=== PATIENT | female | born 1980 | race American Indian/Alaskan Native ===

== ENCOUNTER 2016-08-17 06:01 | Emergency (ER) | payer MEDICAID ==
[2016-08-17 06:21] VITALS: BP 136/101
== END 2016-08-17 06:38 | disposition left against medical advice (07) ==
LOC: ED 06:01
DX: S01.511A Laceration without foreign body of lip, initial encounter (principal); F17.200 Nicotine dependence, unspecified, uncomplicated; W22.8XXA Striking against or struck by other objects, initial encounter; Y93.89 Activity, other specified; Y99.9 Unspecified external cause status; Y92.89 Other specified places as the place of occurrence of the external cause; Z53.21 Procedure and treatment not carried out due to patient leaving prior to being seen by health care provider

== ENCOUNTER 2016-08-17 07:09 | Emergency (ER) | payer MEDICAID ==
[2016-08-17 07:27] VITALS: BP 146/106
--- NOTE | 2016-08-17 08:07 | Emergency Department Report ---
ED Laceration HPI - HPI Chief Complaint: Laceration/Recheck/Suture Stated Complaint: LIP LACERATION Occurred When: Today Location: Head (left upper lip) Laceration Symptoms: Yes Pain, No Foreign Body Sensation, No Numbness Other History: 36-year-old female comes in for a laceration to her upper lip. Patient reports that she had been over and hit her mouth. She reports that her left upper tooth went into her lip and cheek. Now she has a opening from the inside of her mouth to a little small outside opening. She reports that mouth kept bleeding until she arrived here in the emergency room. ED Review of Systems ROS: Stated complaint: LIP LACERATION Other details as noted in HPI Constitutional: no symptoms reported ENT: other (mouth pain) ED Past Medical Hx - Past Medical History Previous Medical History?: No Additional medical history: KIDNEY INFECTION - Surgical History Past Surgical History?: No - Social History Smoking Status: Current Every Day Smoker Substance Use Type: Alcohol - Medications Home Medications: Home Medications Medication Instructions Recorded Confirmed Last Taken Type Nitrofurantoin [place]/M-Cryst 100 mg PO Q12HR #14 capsule 03/04/14 Unknown Rx [Macrobid] Ondansetron [Zofran Odt] 8 mg PO TID PRN #7 tab.rapdis 03/04/14 Unknown Rx oxyCODONE /ACETAMINOPHEN [Percocet 1 tab PO Q6HR PRN #10 tablet 03/04/14 Unknown Rx 5/325 mg] Acetaminophen/Codeine [Tylenol #3] 1 tab PO Q6H PRN #14 tab 12/24/14 Unknown Rx Cyclobenzaprine [Flexeril 10mg] 10 mg PO TID PRN #20 tablet 12/24/14 Unknown Rx Ibuprofen [Motrin 800 MG tab] 800 mg PO Q8H PRN #30 tablet 12/24/14 Unknown Rx Ibuprofen [Motrin 800 MG tab] 800 mg PO Q8HR PRN #20 tablet 05/29/16 Unknown Rx Laceration Physical Exam - Exam General: Vital signs noted. No distress. Alert and acting appropriately. Wound Length (cm): 1 Laceration Location: Other (left upper lip) ED Course Vital Signs 08/17/16 07:20 Temperature 98.4 F Pulse Rate 103 H Respiratory 18 Rate Blood Pressure 146/106 O2 Sat by Pulse 100 Oximetry - Laceration /Wound Repair Left Cheek Wound Length (cm): 1 Wound's Depth, Shape: superficial Wound Explored: no foreign body removed Irrigated w/ Saline (ccs): 5 Betadine Prep?: Yes Wound Repaired With: Dermabond Sterile Dressing Applied?: No Progress: Patient tolerated procedure well. ED Medical Decision Making - Medical Decision Making Patient has been evaluated by this provider. Discussed with patient that we used Dermabond to close the outer cheek. Discussed with patient that the inner cheek heals very fast and that it would be best to have it heal on its own. Recommend patient to do warm salt rinses at least 3 times a day. She can take Tylenol or ibuprofen for pain management. Patient verbalized understanding. Critical care attestation.: If time is entered above; I have spent that time in minutes in the direct care of this critically ill patient, excluding procedure time. ED Disposition Clinical Impression: Laceration of cheek Qualifiers: Encounter type: initial encounter Laterality: left Qualified Code(s): S01.412A - Laceration without foreign body of left cheek and temporomandibular area, initial encounter Disposition: DISCHARGED TO HOME OR SELFCARE Is pt being admited?: No Does the pt Need Aspirin: No Condition: Stable Instructions: Laceration (ED) Additional Instructions: Rinse mouth out with warm salt water at least 3 times a day. Tylenol or ibuprofen for pain management. Do not pick or scribe the outer left cheek with the Dermabond has been placed. Following closure primary care provider. Referrals: TIM LANDEROS MD [Primary Care Provider] - 3-5 Days JEANNA MCKEON MD [Staff Physician] - 3-5 Days Forms: Work/School Release Form(ED)
== END 2016-08-17 09:11 | disposition home or self-care (01) ==
LOC: ED 07:09
DX: S01.412A Laceration without foreign body of left cheek and temporomandibular area, initial encounter (principal); F17.200 Nicotine dependence, unspecified, uncomplicated; W22.8XXA Striking against or struck by other objects, initial encounter; Y93.89 Activity, other specified; Y99.9 Unspecified external cause status; Y92.89 Other specified places as the place of occurrence of the external cause

== ENCOUNTER 2016-10-15 23:58 | Emergency (ER) | payer MEDICAID ==
[2016-10-16] MEDS ORDERED: NACL 0.9% 1000 ML 1,000 ML IV ONE (00:20)
[2016-10-16 00:54] LABS: Basophils % (Auto) 0.6 % (0.0-1.8); Eosinophils % (Auto) 0.6 % (0.0-4.3); Hematocrit 40.2 % (30.3-42.9); Hemoglobin 12.7 gm/dl (10.1-14.3); Mean Corpuscular HGB Conc 32 % (30-34); Mean Corpuscular Volume 82 fl (79-97); Platelet Count 297 K/mm3 (140-440); Red Blood Count 4.93 M/mm3 (3.65-5.03); Red Cell Distribution Width 14.4 % (13.2-15.2); White Blood Count 17.1 K/mm3 (4.5-11.0)
[2016-10-16 01:04] LABS: INR 1.01 (0.87-1.13)
[2016-10-16 01:05] LABS: Partial Thromboplastin Time 23.8 Sec. (24.2-36.6)
[2016-10-16 01:07] LABS: Mean Corpuscular Hemoglobin 26 pg (28-32)
[2016-10-16 01:09] LABS: Urine Drugs of Abuse Note Disclamer
[2016-10-16 01:10] LABS: Alanine Aminotransferase 28 units/L (7-56); Albumin 4.5 g/dL (3.9-5); Albumin/Globulin Ratio 1.4 %; Alkaline Phosphatase 87 units/L (35-129); Anion Gap 21 mmol/L; BUN/Creatinine Ratio 16.25; Bilirubin,Total 0.2 mg/dL (0.1-1.2); Blood Urea Nitrogen 13 mg/dL (7-17); Calcium 8.7 mg/dL (8.4-10.2); Carbon Dioxide 22 mmol/L (22-30); Chloride 102.3 mmol/L (98-107); Creatine Kinase 579 units/L (30-135); Glucose 120 mg/dL (65-100); Potassium 3.7 mmol/L (3.6-5.0); Sodium 142 mmol/L (137-145); Total Protein 7.7 g/dL (6.3-8.2)
--- NOTE | 2016-10-16 01:22 | Emergency Department Report ---
ED Altered Mental Status HPI - General Chief Complaint: Altered Mental Status Stated Complaint: POSS CONSUSSION Time Seen by Provider: 10/16/16 00:14 Source: police Mode of arrival: Ambulatory Limitations: Altered Mental Status, Physical Limitation - History of Present Illness Initial Comments: 36-year-old female presents emergency Department via law enforcement for evaluation of altered mental status. History is obtained from law enforcement due to the patient's altered mental status. Per report, patient was at a local hotel going from door to door and banging on them. Law enforcement was called to investigate. Patient became combative with law enforcement and had to be forcibly restrained. Patient reportedly then became unconscious. Further history is unable to be obtained from the patient. MD Complaint: altered mental status -: Sudden, This evening Severity: moderate Consistency of Symptoms: constant Context: trauma ED Review of Systems ROS: Stated complaint: POSS CONSUSSION Other details as noted in HPI Comment: Unobtainable due to pts medical conditions ED Past Medical Hx - Past Medical History Additional medical history: Unknown - Surgical History Additional Surgical History: Unknown - Social History Smoking Status: Unknown if ever smoked ED Physical Exam - General Limitations: Altered Mental Status, Physical Limitation General appearance: in no apparent distress, lethargic - Head Head exam: Present: normocephalic, other (contusion noted to the occipital scalp ) - Eye Eye exam: Present: normal appearance, PERRL, EOMI - ENT ENT exam: Present: normal exam, normal orophraynx, mucous membranes moist - Neck Neck exam: Present: normal inspection, full ROM. Absent: tenderness - Respiratory Respiratory exam: Present: normal lung sounds bilaterally. Absent: respiratory distress - Cardiovascular Cardiovascular Exam: Present: regular rate, normal rhythm, normal heart sounds - GI/Abdominal GI/Abdominal exam: Present: soft, normal bowel sounds. Absent: distended, tenderness - Extremities Exam Extremities exam: Present: normal inspection, full ROM. Absent: tenderness - Back Exam Back exam: Present: normal inspection, full ROM. Absent: tenderness - Neurological Exam Neurological exam: Present: altered, other (GCS 11 (E3, V3, M5)). Absent: motor sensory deficit - Skin Skin exam: Present: warm, dry, intact ED Course Vital Signs 10/16/16 00:28 Pulse Rate 104 H Respiratory 18 Rate Blood Pressure 133/95 [Left] O2 Sat by Pulse 100 Oximetry - Lab Data Result diagrams: 10/16/16 00:29 10/16/16 00:29 Lab Results 10/16/16 10/16/16 10/16/16 Range/Units 00:29 00:29 00:29 WBC 17.1 H (4.5-11.0) K/mm3 RBC 4.93 (3.65-5.03) M/mm3 Hgb 12.7 (10.1-14.3) gm/dl Hct 40.2 (30.3-42.9) % MCV 82 (79-97) fl MCH 26 L (28-32) pg MCHC 32 (30-34) % RDW 14.4 (13.2-15.2) % Plt Count 297 (140-440) K/mm3 Lymph % (Auto) 10.6 L (13.4-35.0) % Boundary % (Auto) 3.2 (0.0-7.3) % Eos % (Auto) 0.6 (0.0-4.3) % Baso % (Auto) 0.6 (0.0-1.8) % Lymph # 1.8 (1.2-5.4) K/mm3 Boundary # 0.6 (0.0-0.8) K/mm3 Eos # 0.1 (0.0-0.4) K/mm3 Baso # 0.1 (0.0-0.1) K/mm3 Seg Neutrophils % 85.0 H (40.0-70.0) % Seg Neutrophils # 14.5 H (1.8-7.7) K/mm3 PT 13.2 (12.2-14.9) Sec. INR 1.01 (0.87-1.13) APTT 23.8 L (24.2-36.6) Sec. Sodium 142 (137-145) mmol/L Potassium 3.7 (3.6-5.0) mmol/L Chloride 102.3 (98-107) mmol/L Carbon Dioxide 22 (22-30) mmol/L Anion Gap 21 mmol/L BUN 13 (7-17) mg/dL Creatinine 0.8 (0.7-1.2) mg/dL Estimated GFR > 60 ml/min BUN/Creatinine Ratio 16.25 % Glucose 120 H (65-100) mg/dL Lactic Acid (0.7-2.0) mmol/L Calcium 8.7 (8.4-10.2) mg/dL Total Bilirubin 0.2 (0.1-1.2) mg/dL AST 65 H (5-40) units/L ALT 28 (7-56) units/L Alkaline Phosphatase 87 (35-129) units/L Total Creatine Kinase 579 H (30-135) units/L Total Protein 7.7 (6.3-8.2) g/dL Albumin 4.5 (3.9-5) g/dL Albumin/Globulin Ratio 1.4 % Salicylates (2.8-20.0) mg/dL Plasma/Serum Alcohol (0-0.07) gm% 10/16/16 10/16/16 10/16/16 Range/Units 00:29 00:29 00:29 WBC (4.5-11.0) K/mm3 RBC (3.65-5.03) M/mm3 Hgb (10.1-14.3) gm/dl Hct (30.3-42.9) % MCV (79-97) fl MCH (28-32) pg MCHC (30-34) % RDW (13.2-15.2) % Plt Count (140-440) K/mm3 Lymph % (Auto) (13.4-35.0) % Boundary % (Auto) (0.0-7.3) % Eos % (Auto) (0.0-4.3) % Baso % (Auto) (0.0-1.8) % Lymph # (1.2-5.4) K/mm3 Boundary # (0.0-0.8) K/mm3 Eos # (0.0-0.4) K/mm3 Baso # (0.0-0.1) K/mm3 Seg Neutrophils % (40.0-70.0) % Seg Neutrophils # (1.8-7.7) K/mm3 PT (12.2-14.9) Sec. INR (0.87-1.13) APTT (24.2-36.6) Sec. Sodium (137-145) mmol/L Potassium (3.6-5.0) mmol/L Chloride (98-107) mmol/L Carbon Dioxide (22-30) mmol/L Anion Gap mmol/L BUN (7-17) mg/dL Creatinine (0.7-1.2) mg/dL Estimated GFR ml/min BUN/Creatinine Ratio % Glucose (65-100) mg/dL Lactic Acid 3.6 H* (0.7-2.0) mmol/L Calcium (8.4-10.2) mg/dL Total Bilirubin (0.1-1.2) mg/dL AST (5-40) units/L ALT (7-56) units/L Alkaline Phosphatase (35-129) units/L Total Creatine Kinase (30-135) units/L Total Protein (6.3-8.2) g/dL Albumin (3.9-5) g/dL Albumin/Globulin Ratio % Salicylates < 0.3 L (2.8-20.0) mg/dL Plasma/Serum Alcohol 0.23 H (0-0.07) gm% - Radiology Data Radiology results: report reviewed, image reviewed CT of the head shows a small amount of probable subarachnoid blood in the left frontal/temporal lobe. There is no mass effect or midline shift noted. This was discussed with the radiologist. - Medical Decision Making Lab and imaging results have been reviewed. I have spoken with Dr. Hicks, trauma surgery at [facility]. Patient has been accepted in transfer. - Differential Diagnosis alcohol intoxication, closed head injury Critical care attestation.: If time is entered above; I have spent that time in minutes in the direct care of this critically ill patient, excluding procedure time. ED Disposition Clinical Impression: Subarachnoid hemorrhage Alcohol intoxication Qualifiers: Complication of substance-induced condition: uncomplicated Qualified Code(s): F10.120 - Alcohol abuse with intoxication, uncomplicated Disposition: DC/TX SHORT-TERM GEN HOSP INPT Is pt being admited?: No Condition: Stable Referrals: PRIMARY CARE, [Primary Care Provider] - 3-5 Days Time of Disposition: 01:41
[2016-10-16 01:26] LABS: Bilirubin,Urine NEG (Negative); Blood,Urine SM (Negative); Ketones,Urine NEG (Negative); Leukocyte Esterase,Urine NEG (Negative); Mucus,Urine FEW /HPF; Nitrite,Urine NEG (Negative); RBC,Urine < 1.0 /HPF (0.0-6.0); Urobilinogen,Urine < 2.0 mg/dL (<2.0); WBC,Urine < 1.0 /HPF (0.0-6.0)
--- NOTE | 2016-10-16 01:36 | Cat Scan Report ---
FINAL REPORT PROCEDURE: CT HEAD/BRAIN WO CON TECHNIQUE: Computerized tomography of the head was performed without contrast material. HISTORY: Altered Mental Status, trauma COMPARISON: No prior studies are available for comparison. FINDINGS: Skull and scalp: Small area of soft tissue swelling identified along posterior right occipital bone. No skull fracture is seen.. Paranasal sinuses: Normal. Ventricles and subarachnoid spaces: Normal. Cerebrum: There are numerous small areas of subtle hyper attenuation identified in the anterior lateral frontal lobe region is well as the lateral left temporal lobe region. A subtle subarachnoid hemorrhage is suspected. Further evaluation with MRI would be of benefit. The remainder of the cerebral imaging appears normal. The ventricles are normal. No midline displacement or mass effect at this time.. Cerebellum and brainstem: No evidence of hemorrhage, acute infarction or mass. Vasculature: There is a mild increased density of the left middle cerebral artery. Magnetic resonance imaging of this region would be of benefit.. Comments: There is some artifact identified from earrings.. IMPRESSION: Numerous small areas of subtle hyper attenuation identified in the anterior lateral left frontal lobe region as well as the lateral left temporal lobe region most consistent with a subtle subarachnoid hemorrhage. Cerebral contusion is also within the differential. Further evaluation with MRI would be of benefit. There is no evidence of mass effect or midline displacement. The basilar cisterns are maintained. Mild increased density of the left middle cerebral artery on this study, further evaluation with MRI would be of benefit. There is mild soft tissue swelling identified along the posterior right occipital bone. No skull fracture is seen. The above critical findings are discussed with the patient's ER physician at the time of dictation 0028 central standard time on 10/16/2016
[2016-10-16 02:16] VITALS: BP 126/85
--- NOTE | 2016-10-16 02:17 | Cat Scan Report ---
FINAL REPORT PROCEDURE: CT CERVICAL SPINE WO CON TECHNIQUE: Computerized tomography of the cervical spine was performed from the skull base to T1 without contrast material. HISTORY: trauma with [facility] COMPARISON: No prior studies are available for comparison. FINDINGS: The alignment of the vertebral segments is normal. No acute fracture or dislocation. The heights of the vertebral bodies and the disc spaces are maintained. The spinal canal is adequate at all levels. Visualized portion of the airway is patent IMPRESSION: Normal CT of the cervical spine..
== END 2016-10-16 03:30 | disposition short-term general hospital (02) ==
LOC: ED 23:58 → MERGE 23:58 → EDBD 23:58 → ED 10-16 03:30
DX: I60.9 Nontraumatic subarachnoid hemorrhage, unspecified (principal); F10.120 Alcohol abuse with intoxication, uncomplicated
CPT/HCPCS: 36415; 70450; 72125; 80053; 80307; 81001; 81025; 82140; 82550; 85025; 85610; 85730; 96360; 96361; 99285; G0480; J7030; 80320

== ENCOUNTER 2017-06-30 11:49 | Emergency (ER) | payer MEDICAID ==
[2017-06-30 12:00] VITALS: BP 148/126
--- NOTE | 2017-06-30 12:28 | XRay Report ---
RIGHT HAND, 3 views: History: Right hand injury and pain. The bony architecture is intact. Bony alignment is normal. No soft tissue abnormalities are seen. The joint spaces appear preserved. IMPRESSION: Normal right hand.
== END 2017-06-30 15:28 | disposition left against medical advice (07) ==
LOC: ED 11:49
DX: M79.641 Pain in right hand (principal); Z53.21 Procedure and treatment not carried out due to patient leaving prior to being seen by health care provider
CPT/HCPCS: 81025

== ENCOUNTER 2018-02-26 16:53 | Inpatient (IN) | payer MEDICAID ==
[2018-02-26] MEDS ORDERED: LACTATED RINGERS 2,000 ML ONE (18:04)
[2018-02-26] MEDS: LACTATED RINGERS 1,000 ML IV SCH ×3 (18:40→20:04)
[2018-02-26] MEDS ORDERED: BICITRA PO ONE (19:00)
[2018-02-26] MEDS ORDERED: REGLAN IV ONE (19:00)
[2018-02-26] MEDS ORDERED: ANCEF/STERILE WATER 2 GM/20 ML 2 GM/20 ML SYRINGE IV NR (19:00)
[2018-02-26] MEDS ORDERED: BRETHINE SUB-Q ONE (19:00)
[2018-02-26] MEDS ORDERED: PEPCID IV ONE (19:00)
[2018-02-26] MEDS ORDERED: PITOCin/NS 20 UNIT/1000ML DRIP 20 UNITS/1,000 ML BAG IV SCH ×2 (19:00→23:00)
[2018-02-26 19:11] LABS: Basophils # (Auto) 0.1 K/mm3 (0.0-0.1); Basophils % (Auto) 0.4 % (0.0-1.8); Eosinophils # (Auto) 0.3 K/mm3 (0.0-0.4); Eosinophils % (Auto) 2.2 % (0.0-4.3); Hematocrit 34.8 % (30.3-42.9); Hemoglobin 11.3 gm/dl (10.1-14.3); Lymphocytes # (Auto) 2.7 K/mm3 (1.2-5.4); Lymphocytes % (Auto) 18.4 % (13.4-35.0); Mean Corpuscular HGB Conc 33 % (30-34); Mean Corpuscular Hemoglobin 26 pg (28-32); Mean Corpuscular Volume 79 fl (79-97); Monocytes % (Auto) 6.5 % (0.0-7.3); Platelet Count 244 K/mm3 (140-440); Red Blood Count 4.39 M/mm3 (3.65-5.03); Red Cell Distribution Width 13.8 % (13.2-15.2)
[2018-02-26] MEDS ORDERED: DEMEROL IV PRN (21:15)
[2018-02-26] MEDS ORDERED: ZOFRAN IV PRN ×2 (21:15→22:57)
[2018-02-26] MEDS ORDERED: DILAUDID IV PRN (21:15)
--- NOTE | 2018-02-26 21:15 | Anesthesia Consultation ---
Anesthesia Consult and Med Hx Date of service: 02/26/18 - Airway Anesthetic Teeth Evaluation: Good ROM Head & Neck: Adequate Mental/Hyoid Distance: Adequate Mallampati Class: Class I Intubation Access Assessment: Good - Pulmonary Exam CTA: Yes - Cardiac Exam Cardiac Exam: RRR - Pre-Operative Health Status ASA Pre-Surgery Classification: ASA2, Emergency Proposed Anesthetic Plan: Epidural - Pulmonary Hx Asthma: No COPD: No Hx Pneumonia: No - Cardiovascular System Hx Hypertension: Yes - Central Nervous System Hx Seizures: Yes Hx Psychiatric Problems: Yes (DEPRESSION) - Endocrine Hx Renal Disease: No Hx End Stage Renal Disease: No Hx Hypothyroidism: No Hx Hyperthyroidism: No - Hematic Hx Anemia: No Hx Sickle Cell Disease: No - Other Systems Hx Alcohol Use: No
--- NOTE | 2018-02-26 21:15 | Anesthesia Day of Surgery ---
Anesthesia Day of Surgery - Day of Surgery Patient Examined: Yes Patient H&P Reviewed: Yes Patient is NPO: No (pt had a meal at 16:00)
[2018-02-26] MEDS ORDERED: XYLOCAINE MPF 2% ONE (21:48)
[2018-02-26] MEDS ORDERED: SUBLIMAZE ONE (21:51)
[2018-02-26] MEDS ORDERED: NEO SYNEPHRINE/NS Syringe(OR USE) IV ONE (21:58)
[2018-02-26] MEDS ORDERED: LACTATED RINGERS 1,000 ML ONE (21:58)
[2018-02-26] MEDS ORDERED: TORADOL ONE (21:58)
[2018-02-26] MEDS ORDERED: LACTATED RINGERS 1,000 ML IV SCH (22:00)
[2018-02-26] MEDS ORDERED: WATER FOR IRRIG STERILE IR ONE (22:05)
[2018-02-26] MEDS ORDERED: ANCEF IV ONE (22:05)
[2018-02-26] MEDS ORDERED: NACL 0.9% IR ONE (22:05)
--- NOTE | 2018-02-26 22:52 | History and Physical Report ---
History of Present Illness Date of examination: 02/26/18 Date of admission: 02/26/18 19:00 Chief complaint: Ruptured membranes in breech presentation History of present illness: Late Entry: 37-year-old at 37+5 weeks presents with rupture of membranes, she is a [facility] patient. course unremarkable per patient, in triage she is found to be in breech presentation with ruptured membranes Past History Past Medical History: seizure Past Surgical History: no surgical history [employer] History: denies: hepatitis B, hepatitis C, HIV, syphilis, trichomonas Social history: single, full code. denies: smoking - Obstetrical History Expected Date of Delivery: 03/14/18 Actual Gestation: 37 Week(s) 5 Day(s) : 7 Para: 2 Medications and Allergies Allergies Allergy/AdvReac Type Severity Reaction Status Date / Time No Known Allergies Allergy Verified 08/17/16 06:21 Home Medications Medication Instructions Recorded Confirmed Last Taken Type Docusate Sodium [Colace] 100 mg PO BID 02/26/18 02/26/18 02/24/18 21:00 History Ferrous Sulfate [Feosol] 325 mg PO BID 02/26/18 02/26/18 02/24/18 21:00 History 1 Ibuprofen [Motrin 600 MG tab] 600 mg PO Q8H PRN #30 tablet 02/26/18 Unknown Rx Multivitamin with Iron 1 each PO DAILY #30 tablet 02/26/18 Unknown Rx [Multivitamins with Iron] Vit-Fe Fumar-FA [ 1 tab PO QDAY 02/26/18 02/26/18 02/24/18 21: 00 History Vitamin] 1 levETIRAcetam [Keppra] 500 mg PO BID 02/26/18 02/26/18 02/24/18 21:00 History 1 oxyCODONE /ACETAMINOPHEN [Percocet 1 tab PO Q6HR PRN #30 tablet 02/26/18 Unknown Rx 5/325] Active Meds: Active Medications Hydromorphone HCl (Dilaudid) 0.5 mg IV Q10MIN PRN PRN Reason: Pain , Severe (7-10) Cefazolin Sodium (Ancef/Sterile Water 2 Gm/20 Ml) 2 gm in 20 mls @ 80 mls/hr IV PREOP NR; Protocol Stop: 02/26/18 23:59 Lactated Ringer's (Lactated Ringers) 1,000 mls @ 2,250 mls/hr IV PREOP SHY Stop: 02/27/18 19:27 Last Admin: 02/26/18 20:04 Dose: 2,250 mls/hr Oxytocin/Sodium Chloride (Pitocin/Ns 20 Unit/1000ml Drip) 20 units in 1,000 mls @ 0 mls/hr IV TITR SHY Lactated Ringer's (Lactated Ringers) 1,000 mls @ 100 mls/hr IV DIRECT SHY Meperidine HCl (Demerol) 25 mg IV ONCE PRN PRN Reason: Shivering Stop: 02/26/18 23:59 Ondansetron HCl (Zofran) 4 mg IV ONCE PRN PRN Reason: Nausea And Vomiting Review of Systems Constitutional: no fever, no sweats, no chronic headaches Eyes: no blurred vision, no diplopia Cardiovascular: no chest pain, no orthopnea, no syncope, no lightheadedness, no shortness of breath, no dyspnea on exertion Respiratory: no cough, no cough with sputum, no shortness of breath Gastrointestinal: no nausea, no vomiting Genitourinary: leakage of fluid, no vaginal bleeding - Vital Signs Vital signs: Vital Signs Temp Resp 98.6 F 18 02/26/18 18:29 02/26/18 18:29 Temp Pulse Resp BP Pulse Ox 98.6 F 92 H 18 130/88 02/26/18 18:29 02/26/18 18:48 02/26/18 18:29 02/26/18 18:48 - Physical Exam Abdomen: Positive: normal appearance, soft. Negative: distention, tenderness, guarding, rigidity Genitourinary (Female): Negative: normal external genitalia Uterus: Positive: enlarged (EFW ~ 3400) Adnexa: both: normal Extremities: Positive: normal - Obstetrical FHR: category 1 Cervical Dilatation: 2 (Per RN) Results Result Diagrams: 02/26/18 18:50 Abnormal lab results 02/26/18 Range/Units 18:50 WBC 14.7 H (4.5-11.0) K/mm3 MCH 26 L (28-32) pg [facility] # 1.0 H (0.0-0.8) K/mm3 Seg Neutrophils % 72.5 H (40.0-70.0) % Seg Neutrophils # 10.6 H (1.8-7.7) K/mm3 All other labs normal. Assessment and Plan A: 37-year-old at 37+5 weeks ruptured membranes and breech presentation -Category 1 P: -Routine labs -She has been consented -Proceed to the OR for primary - Patient Problems (1) 37 weeks gestation of Current Visit: Yes Status: Acute (2) Breech presentation Current Visit: Yes Status: Acute
[2018-02-26] MEDS ORDERED: PHENERGAN PR PRN (22:57)
[2018-02-26] MEDS ORDERED: ANUCORT-HC PR PRN (22:57)
[2018-02-26] MEDS ORDERED: NARCAN 0.4 MG/1 ML IV PRN (22:57)
[2018-02-26] MEDS ORDERED: MILK OF MAGNESIA PO PRN (22:57)
[2018-02-26] MEDS ORDERED: TYLENOL PO PRN (22:57)
[2018-02-26] MEDS ORDERED: LANSINOH TP PRN (22:57)
[2018-02-26] MEDS ORDERED: SENOKOT PO PRN (22:57)
[2018-02-26] MEDS ORDERED: TUCKS PAD TP PRN (22:57)
[2018-02-26] MEDS ORDERED: MYLICON PO PRN (22:57)
--- NOTE | 2018-02-26 22:57 | Operative Report ---
Operative Report Operative Report: DATE: 02/26/2018 PREOPERATIVE DIAGNOSIS: 37-year-old at 37+5 weeks, breech presentation, active labor POSTOP DIAGNOSIS: As above NAME OF PROCEDURE: Primary low transverse section SURGEON: JAIME STEEN MD MENTAL HEALTH PRACTITIONER: Marleni ANESTHESIA: Combined spinal epidural EBL: 500 mL PATHOLOGY SPECIMEN: None URINE OUTPUT: 100 mL FINDINGS: Male in complete breech presentation, time of is 22:06, weight 6 lbs. 1 oz. or 2751 grams, Apgars 8 and 9, uterus appears unlabored otherwise normal with normal uterus tubes and ovaries bilaterally DESCRIPTION OF PROCEDURE: After informed consent, patient was taken to the operating room where she was prepped and draped in a sterile fashion. Pfannestial incision was performed 2 cm above the pubic symphysis. This was then carried down to the underlying rectus fascia which was scored in the midline. The fascial incision was extended laterally with the use of Frances scissors, anterior leaf was then grasped with Kip's elevated dissected sharply and bluntly off the underlying rectus. In a similar fashion the inferior leaf was grasped elevated dissected sharply and bluntly off the underlying rectus. The rectus was in the midline and the peritoneal cavity was entered without difficulty. After good visualization of the bladder the peritoneal layer was extended up and down; bladder blade was placed in the patient's pelvic cavity, bladder flap could not be created. A hysterotomy incision was then performed with clear amniotic fluid noted. Infant in cephalic presentation was delivered without difficulty in the usual manner; cord was clamped cut and was handed over to waiting NICU staff. The placenta was then delivered intact, the uterus was then exteriorized cleared of all clots and debris. Her hysterotomy incision was then closed in a running locked fashion with 0 Vicryl on a CTX; using the same suture were able to imbricate the initial layer. The uterus was then returned to the patient's pelvic cavity ; the peritoneal edges were grasped with hemostats and Rose Mary's; irrigation was used to clear the gutters of all clots and debris. Tisseel hemostatic agent was applied copiously over the hysterotomy incision. The peritoneal layer was closed in a running fashion with 3-0 Vicryl; the rectus was reapproximated with a single [id number] stitch. The fascia was then closed in a running fashion with 0 Vicryl; the subcutaneous layer was reapproximated with a single [id number] stitch. The skin was then closed in a subcuticular manner with 4-0 Monocryl. She tolerated the procedure well lap and instrument counts were correct 2, she did receive 2 grams of Ancef prior to the procedure. She is transferred to PACU in stable condition.
[2018-02-26] MEDS ORDERED: SODIUM CHLORIDE FLUSH SYRINGE 10 ML IV PRN (23:00)
[2018-02-26] MEDS ORDERED: D5LR 1,000 ML IV SCH (23:00)
[2018-02-27] MEDS: TORADOL IV PRN ×2 (01:16→09:50)
[2018-02-27] MEDS: KEPPRA PO SCH ×3 (01:17→22:33)
[2018-02-27] MEDS: PERCOCET 5/325 PO PRN ×3 (04:43→19:41)
[2018-02-27] MEDS: PRENATAL VITAMIN PO SCH (09:55)
[2018-02-27] MEDS: FEOSOL PO SCH (09:55)
--- NOTE | 2018-02-27 10:03 | Progress Note ---
Assessment and Plan O; Parker still in, BP stable A: POD # 1 -stable P: Continue post -op care Subjective - Subjective Date of service: 02/27/18 Principal diagnosis: - Breech Patient reports: appetite normal : doing well Objective - Vital Signs Latest vital signs: Vital Signs Temp Pulse Resp BP BP Pulse Ox 02/27/18 04:45 97.9 F 89 20 125/78 98 02/27/18 00:52 98.0 F 76 20 133/90 100 02/27/18 00:11 98.5 F 82 12 124/83 100 02/27/18 00:10 16 02/26/18 23:05 98.3 F 76 16 120/75 100 02/26/18 18:48 92 H 130/88 02/26/18 18:29 98.6 F 18 Intake and Output 02/26/18 02/27/18 02/27/18 22:59 06:59 14:59 Intake Total 2787.5 Output Total 300 100 Balance 2487.5 -100 Intake: IV 2787.5 Lactated Ringers 1,000 ml 1787.5 @ 2250 mls/hr IV PREOP [facility] Rx#:[id number] Output: Urine 300 100 Uretheral (Parker) 100 Void 200 Other: Total, Output Amount 200 # Voids Void 1 Weight 145 lb Estimated Blood Loss 500 - Exam Breasts: Present: deferred Cardiovascular: Present: Regular rate Lungs: Present: Clear to auscultation Abdomen: Present: soft Uterus: Present: fundal height below umbilicus Deep Tendon Reflex Grade: Normal +2 Incision: Present: dressed - Labs Labs: Abnormal lab results 02/26/18 Range/Units 18:50 WBC 14.7 H (4.5-11.0) K/mm3 MCH 26 L (28-32) pg [place]oyah # 1.0 H (0.0-0.8) K/mm3 Seg Neutrophils % 72.5 H (40.0-70.0) % Seg Neutrophils # 10.6 H (1.8-7.7) K/mm3
[2018-02-27 14:28] LABS: Hematocrit 29.7 % (30.3-42.9); Hemoglobin 9.7 gm/dl (10.1-14.3)
[2018-02-27] MEDS ORDERED: M-M-R II VACCINE SUB-Q ONE (22:58)
[2018-02-27] MEDS: MOTRIN PO PRN (23:24)
[2018-02-28] MEDS: PERCOCET 5/325 PO PRN ×3 (01:11→23:28)
[2018-02-28] MEDS: MOTRIN PO PRN ×2 (05:27→16:41)
[2018-02-28] MEDS ORDERED: BOOSTRIX IM ONE (06:00)
--- NOTE | 2018-02-28 08:49 | Progress Note ---
Assessment and Plan A: POD # 2 stable P: Plan discharge in the am Subjective - Subjective Date of service: 02/28/18 Principal diagnosis: - Breech Patient reports: appetite normal [place]: doing well Objective - Vital Signs Latest vital signs: Vital Signs Temp Pulse Resp BP Pulse Ox 02/27/18 23:24 98.3 F 85 18 125/78 100 02/27/18 19:38 98.5 F 95 H 20 126/89 99 02/27/18 16:07 98.2 F 89 18 119/71 02/27/18 12:00 98.4 F 88 18 126/81 Intake and Output 02/27/18 02/28/18 02/28/18 22:59 06:59 14:59 Intake Total 36 500 Output Total 650 400 Balance -614 100 Intake: Oral 36 500 Output: Urine 650 400 Indwelling Catheter 200 Void 450 400 Other: Total, Intake Amount 36 500 Total, Output Amount 200 400 - Exam Breasts: Present: deferred Cardiovascular: Present: Regular rate Lungs: Present: Clear to auscultation Abdomen: Present: soft Vulva: both: normal Uterus: Present: fundal height below umbilicus Extremities: Present: normal Deep Tendon Reflex Grade: Normal +2 Incision: Present: dressed - Labs Labs: Abnormal lab results 02/27/18 Range/Units 13:35 Hgb 9.7 L (10.1-14.3) gm/dl Hct 29.7 L (30.3-42.9) %
[2018-02-28] MEDS: PRENATAL VITAMIN PO SCH (09:22)
[2018-02-28] MEDS: KEPPRA PO SCH ×2 (09:22→21:33)
[2018-03-01] MEDS: FEOSOL PO SCH (08:25)
[2018-03-01] MEDS: PRENATAL VITAMIN PO SCH (08:26)
[2018-03-01] MEDS: KEPPRA PO SCH (08:26)
[2018-03-01] MEDS: MOTRIN PO PRN ×2 (08:26→13:48)
[2018-03-01] MEDS: PERCOCET 5/325 PO PRN ×2 (08:27→13:47)
--- NOTE | 2018-03-01 11:05 | Progress Note ---
Assessment and Plan A: POD#3 s/p Primary section (breech presentation) Stable P: Routine PP/PO care Plan discharge home today Incision check in 1 week Subjective - Subjective Date of service: 03/01/18 Principal diagnosis: POD#3 s/p Primary c/s (Breech presentation) Patient reports: appetite normal, voiding normally, pain well controlled, flatus , ambulating normally : doing well, bottle feeding Objective - Vital Signs Latest vital signs: Vital Signs Temp Pulse Resp BP Pulse Ox 03/01/18 08:27 20 03/01/18 08:26 20 03/01/18 08:12 98.0 F 99 H 20 135/95 99 03/01/18 00:40 98.3 F 78 20 132/83 98 02/28/18 16:40 98.2 F 84 20 120/80 Intake and Output 02/28/18 03/01/18 03/01/18 23:59 07:59 15:59 Intake Total 400 480 Output Total 2 Balance 398 480 Intake: Oral 400 480 Output: Urine 2 Void 2 Other: Total, Intake Amount 400 240 Total, Output Amount 2 # Voids Void 1 - Exam Breasts: Present: normal Cardiovascular: Present: Regular rate, Normal S1, Normal S2. Absent: No murmurs Lungs: Present: Clear to auscultation, Normal air movement Abdomen: Present: normal appearance, soft, tenderness (as expected post-op), normal bowel sounds. Absent: distention Vulva: both: normal Uterus: Present: firm, fundal height at umbilicus Extremities: Present: normal Deep Tendon Reflex Grade: Normal +2 Incision: Present: normal (LTI, closed with SQ sutures and steri strips, CDI, no drainage. ), dry, intact
--- NOTE | 2018-03-01 11:07 | Discharge Summary ---
Providers - Providers Date of Admission: 02/26/18 19:00 Date of discharge: 03/01/18 Attending physician: ESSIE REYES MD Primary care physician: ESSIE REYES MD Hospitalization Reason for admission: active labor, IUP at term Delivery: Procedure: primary low transverse (Breech presentation) Procedure details: See Operative note Episiotomy: none Incision: normal (LTI, closed with SQ sutres and steri strips, CDI, no active drainage. ), dry, intact Other procedures: none complications: none Discharge diagnosis: IUP at term delivered baby: male Condition at discharge: Good Disposition: DC-01 TO HOME OR SELFCARE Plan - Discharge Medications Prescriptions: Ibuprofen [Motrin 600 MG tab] 600 mg PO Q8H PRN #30 tablet PRN Reason: Pain Multivitamin with Iron [Multivitamins with Iron] 1 each PO DAILY #30 tablet oxyCODONE /ACETAMINOPHEN [Percocet 5/325] 1 tab PO Q6HR PRN #30 tablet PRN Reason: Pain - Provider Discharge Summary Activity: routine, no sex for 6 weeks, no heavy lifting 4 weeks, no strenuous exercise Diet: routine Instructions: routine Additional instructions: [] Smoking cessation referral if applicable(refer to patient education folder for contact #) [] Refer to [facility] Booklet Call your doctor immediately for: * Fever > 100.5 * Heavy vaginal bleeding ( >1 pad per hour) * Severe persistent headache * Shortness of breath * Reddened, hot, painful area to leg or breast * Drainage or odor from incision. * Keep incision clean and dry at all times and follow doctor's instructions regarding bathing/showering - Follow up plan Follow up: ESSIE REYES MD [Primary Care Provider] - 7 Days
[2018-03-01 18:00] VITALS: BP 117/88
== END 2018-03-01 17:05 | disposition home or self-care (01) | DRG 765 ==
LOC: TRG 16:53 → APU 19:00 → OB 02-27 00:45
PROVIDERS: ADMIT Obstetrics & Gynecology; ATTEND Obstetrics & Gynecology
PROC: 10D00Z1 Extraction of Products of Conception, Low, Open Approach (ICD-10-PCS; principal; 2018-02-26)
PROC: 3E0234Z Introduction of Serum, Toxoid and Vaccine into Muscle, Percutaneous Approach (ICD-10-PCS; 2018-02-27)
DX: O32.1XX0 Maternal care for breech presentation, not applicable or unspecified (principal); O99.354 Diseases of the nervous system complicating childbirth; D62 Acute posthemorrhagic anemia; Z3A.37 37 weeks gestation of pregnancy; Z37.0 Single live birth; Z23 Encounter for immunization; O99.344 Other mental disorders complicating childbirth; F32.9 Major depressive disorder, single episode, unspecified; R56.9 Unspecified convulsions
CPT/HCPCS: 36415; 59025; 85014; 85018; 85025; 86706; 86850; 86900; 86901; 87116; 90471; 90715; 96360; 96372; 96374; 99211; G0463; J0690; J1885; J2370; J2590; J2765; J3010; J3105; J7120; J7121

== ENCOUNTER 2018-04-01 11:30 | Emergency (ER) | payer MEDICAID ==
[2018-04-01] MEDS ORDERED: ATIVAN IV ONE ×2 (12:33→15:13)
[2018-04-01] MEDS ORDERED: NACL 0.9% 1000 ML 1,000 ML IV ONE (12:33)
[2018-04-01] MEDS ORDERED: NACL 0.9% 1000 ML 1,000 ML ONE ×2 (12:35→15:34)
[2018-04-01] MEDS ORDERED: ATIVAN ONE ×2 (12:35→15:18)
--- NOTE | 2018-04-01 12:37 | Emergency Department Report ---
ED Psych HPI - General Chief Complaint: Psych Stated Complaint: SUICIDAL Time Seen by Provider: 04/01/18 12:23 Source: patient Mode of arrival: Ambulatory Limitations: No Limitations - History of Present Illness Initial Comments: Patient is a 37-year-old female presents to emergency room for depression and suicidal ideation with a plan. Patient states that she wants to kill herself and her method of doing so would be to fill up the bathtub and throw a hair spinner on to sustain a electrocution. Patient states she's been having these bad thoughts for a while but they're getting more constant. Patient states she is afraid she is going to act on these thoughts of hurting herself. Patient states she is recently had a baby has been having increasing amount of depression but is unable to take her medications due to breast-feeding. At this time patient is not taking any of her psychiatric medications. Patient denies any physical complaints. Patient denies pain. Patient denies chest pain shortness of breath. Patient states she does have some homicidal thoughts of hurting people who have done her bad but no specific plan. Patient states she is anxious at this time and is about to have an anxiety attack. MD Complaint: suicidal ideation -: Sudden Associated Psychiatric Symptoms: depression, suicidal ideation, homicidal ideation, racing thoughts History of same: Yes Quality: constant Improves With: none Worsens With: none Context: not taking psychiatric, significant life stressor Associated Symptoms: insomnia. denies: confusion, headache, shortness of breath , nausea, vomiting, syncope Treatments Prior to Arrival: placed on mental he If Self Harm: admits thoughts of, has plan - Related Data Home Medications Medication Instructions Recorded Confirmed Last Taken levETIRAcetam [Keppra] 500 mg PO BID 02/26/18 04/01/18 03/31/18 Previous Rx's Medication Instructions Recorded Last Taken Type Sulfamethoxazole/Trimethoprim 1 each PO BID 10 Days #20 tablet 04/01/18 Unknown Rx [Bactrim DS TAB] Allergies Allergy/AdvReac Type Severity Reaction Status Date / Time No Known Allergies Allergy Verified 04/01/18 11:56 ED Review of Systems ROS: Stated complaint: SUICIDAL Other details as noted in HPI Constitutional: denies: chills, fever Eyes: denies: eye pain, eye discharge, vision change ENT: denies: ear pain, throat pain Respiratory: denies: cough, shortness of breath, wheezing Cardiovascular: denies: chest pain, palpitations Endocrine: no symptoms reported Gastrointestinal: denies: abdominal pain, nausea, diarrhea Genitourinary: denies: urgency, dysuria, discharge Musculoskeletal: denies: back pain, joint swelling, arthralgia Skin: denies: rash, lesions Neurological: denies: headache, weakness, paresthesias Psychiatric: depression, homicidal thoughts, suicidal thoughts. denies: anxiety Hematological/Lymphatic: denies: easy bleeding, easy bruising ED Past Medical Hx - Past Medical History Previous Medical History?: Yes Hx Hypertension: Yes Hx Congestive Heart Failure: No Hx Diabetes: No Hx Deep Vein Thrombosis: No Hx Renal Disease: No Hx Sickle Cell Disease: No Hx Seizures: Yes Hx Psychiatric Treatment: Yes (Anxiety, Bipolar) Hx Asthma: No Hx COPD: No Hx HIV: No Additional medical history: KIDNEY INFECTION - Surgical History Past Surgical History?: Yes Additional Surgical History: x1 - Family History Family history: no significant - Social History Smoking Status: Current Every Day Smoker Substance Use Type: Alcohol - Medications Home Medications: Home Medications Medication Instructions Recorded Confirmed Last Taken Type levETIRAcetam [Keppra] 500 mg PO BID 02/26/18 04/01/18 03/31/18 History Sulfamethoxazole/Trimethoprim 1 each PO BID 10 Days #20 tablet 04/01/18 Unknown Rx [Bactrim DS TAB] ED Physical Exam - General Limitations: No Limitations General appearance: alert, in no apparent distress - Head Head exam: Present: atraumatic, normocephalic - Eye Eye exam: Present: normal appearance - ENT ENT exam: Present: mucous membranes moist - Neck Neck exam: Present: normal inspection - Respiratory Respiratory exam: Present: normal lung sounds bilaterally. Absent: respiratory distress - Cardiovascular Cardiovascular Exam: Present: regular rate, normal rhythm. Absent: systolic murmur, diastolic murmur, rubs, gallop - GI/Abdominal GI/Abdominal exam: Present: soft, normal bowel sounds - Extremities Exam Extremities exam: Present: normal inspection - Back Exam Back exam: Present: normal inspection - Neurological Exam Neurological exam: Present: alert, oriented X3 - Psychiatric Psychiatric exam: Present: depressed, anxious, homicidal ideation, suicidal ideation - Skin Skin exam: Present: warm, dry, intact, normal color. Absent: rash ED Course Vital Signs 04/01/18 04/01/18 04/01/18 11:56 13:00 13:37 Temperature 98.9 F Pulse Rate 144 H 129 H 136 H Respiratory 18 18 18 Rate Blood Pressure 154/109 Blood Pressure 144/104 [Left] O2 Sat by Pulse 99 100 99 Oximetry 04/01/18 15:18 Temperature Pulse Rate 118 H Respiratory 18 Rate Blood Pressure Blood Pressure 143/86 [Left] O2 Sat by Pulse 99 Oximetry - Reevaluation(s) Reevaluation #1: Patient was placed on 1013 a mental health evaluation will be ordered. Patient will be given fluids and Ativan for a current anxiety attack. We'll continue to monitor patient and adjust treatment when necessary and will medically clear patient once all labs have returned. 04/01/18 12:35 Reevaluation #2: Mental evaluated patient and agrees with 1013 and assessment. Patient to remain on 1013 and await for acceptance into a appropriate psych facility. Patient still complaining of anxiety and patient very tearful. We'll give patient other dose of Ativan 04/01/18 15:14 Discussed all results with patient. Patient found to have a UTI. We'll treat patient with IV Rocephin and continue with IV fluids. States her anxiety has improved. We'll write per patient a prescription to take to the psych facility 04/01/18 15:34 Reevaluation #3: Patient is medically cleared and is awaiting acceptance into a psychiatric facility 04/01/18 15:37 ED Medical Decision Making - Lab Data Result diagrams: 04/01/18 12:52 04/01/18 12:52 Critical care attestation.: If time is entered above; I have spent that time in minutes in the direct care of this critically ill patient, excluding procedure time. ED Disposition Clinical Impression: Suicidal ideation, Acute anxiety, Homicidal ideation Depression Qualifiers: Depression Type: unspecified Qualified Code(s): F32.9 - Major depressive disorder, single episode, unspecified Disposition: DC/TX-65 PSY HOSP/PSY UNIT Is pt being admited?: No Does the pt Need Aspirin: No Condition: Stable Prescriptions: Sulfamethoxazole/Trimethoprim [Bactrim DS TAB] 1 each PO BID 10 Days #20 tablet Referrals: PRIMARY CARE,MD [Primary Care Provider] - 3-5 Days Time of Disposition: 14:14
[2018-04-01 13:21] LABS: Basophils # (Auto) 0.1 K/mm3 (0.0-0.1); Basophils % (Auto) 0.9 % (0.0-1.8); Eosinophils % (Auto) 0.1 % (0.0-4.3); Hematocrit 38.9 % (30.3-42.9); Hemoglobin 12.4 gm/dl (10.1-14.3); Lymphocytes # (Auto) 2.1 K/mm3 (1.2-5.4); Lymphocytes % (Auto) 19.1 % (13.4-35.0); Mean Corpuscular HGB Conc 32 % (30-34); Mean Corpuscular Volume 78 fl (79-97); Monocytes # (Auto) 0.4 K/mm3 (0.0-0.8); Monocytes % (Auto) 3.7 % (0.0-7.3); Platelet Count 365 K/mm3 (140-440); Red Blood Count 5.01 M/mm3 (3.65-5.03); Red Cell Distribution Width 13.6 % (13.2-15.2)
[2018-04-01 13:26] LABS: Mean Corpuscular Hemoglobin 25 pg (28-32)
[2018-04-01 14:15] LABS: BUN/Creatinine Ratio 19; Blood Urea Nitrogen 13 mg/dL (7-17); Hemolysis Index 80
[2018-04-01 14:40] LABS: Bilirubin,Urine NEG (Negative); Blood,Urine LG (Negative); Color,Urine Yellow (Yellow); HCG Qualitative,Urine Negative (Negative); Mucus,Urine FEW /HPF; Urobilinogen,Urine < 2.0 mg/dL (<2.0)
[2018-04-01 14:49] LABS: Benzodiazepines Screen,Urine PRESUMPTIVE NEGATIVE; Cocaine Screen,Urine PRESUMPTIVE NEGATIVE; Methadone Screen,Urine PRESUMPTIVE NEGATIVE; Opiate Screen,Urine PRESUMPTIVE NEGATIVE
[2018-04-01 15:06] LABS: Amphetamine Screen,Urine PRESUMPTIVE POSITIVE; Cannabinoid Screen,Urine PRESUMPTIVE POSITIVE
[2018-04-01] MEDS ORDERED: ROCEPHIN/NS 1 GM/50 ML 1 GM/50 ML BAG IV ONE (16:15)
[2018-04-01] MEDS ORDERED: ATIVAN IM PRN (18:25)
[2018-04-01] MEDS ORDERED: HALDOL IM PRN (18:25)
[2018-04-02 06:56] VITALS: BP 127/81
== END 2018-04-02 06:59 ==
LOC: ED 11:30
DX: F32.9 Major depressive disorder, single episode, unspecified (principal); F41.9 Anxiety disorder, unspecified; G47.00 Insomnia, unspecified; I10 Essential (primary) hypertension; F17.200 Nicotine dependence, unspecified, uncomplicated
CPT/HCPCS: 36415; 80048; 80307; 81001; 81025; 85025; 96361; 96365; 96372; 96375; 99285; G0480; J0696; J1630; J2060; J7030; 80320